=== PATIENT | female | born 1990 | race American Indian/Alaskan Native ===

== ENCOUNTER 2019-05-14 11:10 | Emergency (ER) | payer SELFPAY ==
[2019-05-14 11:22] VITALS: BP 127/91
--- NOTE | 2019-05-14 11:22 | Event Note ---
ED Screening Note Date of service: 05/14/19 Time: 11:20 ED Screening Note: This is a 28 y.o. F. that presents to the ER with left sided facial numbness, cough, congestion, and chest discomfort for 3 days. Taking mucinex. This initial assessment/diagnostic orders/clinical plan/treatment(s) is/are subject to change based on patients health status, clinical progression and re- assessment by fellow clinical providers in the ED. Further treatment and workup at subsequent clinical providers discretion. Patient/guardian urged not to elope from the ED as their condition may be serious if not clinically assessed and managed. Initial orders include:
--- NOTE | 2019-05-14 11:43 | Emergency Department Report ---
Chief Complaint: Upper Respiratory Infection Stated Complaint: CP/FACE NUMB/COUGH/FLU SYM Time Seen by Provider: 05/14/19 11:19 - HPI History of Present Illness: This is a 28-year-old female that presents to the ER with sore throat, cough, congestion, and chest discomfort for 3 days. Patient denies any drooling or hoarseness. Patient denies any other symptoms. Denies any fever, chills, headache, nausea, vomiting, chest pain or SOB. Denies any other complaints. - ROS Review of Systems: ROS: Stated complaint: cough, sore throat, chills, and congestion Other details as noted in HPI Constitutional: chills, fever ENT: throat pain, and congestion. denies: ear pain, Respiratory: cough. denies: shortness of breath, SOB with exertion, wheezing Cardiovascular: denies: palpitations, chest pain Gastrointestinal: denies: abdominal pain, nausea, diarrhea Musculoskeletal: denies: back pain, joint swelling, arthralgia Skin: denies: rash, lesions Neurological: denies: headache, weakness, paresthesias Psychiatric: denies: anxiety, depression - Exam Vital Signs: Vital Signs 05/14/19 11:20 Temperature 98.5 F Pulse Rate 79 Respiratory 16 Rate Blood Pressure 127/91 [Left] O2 Sat by Pulse 100 Oximetry Physical Exam: General: Vital signs noted. No distress. Alert and acting appropriately. HEENT: Yes Moist Mucous Membranes, Yes Rhinorrhea (turbinates mildly congested with clear discharge), Yes Posterior pharynx Erythema (uvula midline), No Pharyngeal Exudates, No Conjuctival Injection, No Frontal Tenderness, No Maxillary Tenderness Ear: Neither TM Bulge, Neither TM Erythema, Neither EAC Pain, Neither EAC Discharge, Neither Cerumen Impaction Neck: Yes Supple, No Adenopathy Lungs: Yes Good Air Exchange, No Wheezes, No Ronchi, No Stridor, No Cough, No Labored Respirations, No Retractions, No Use of Accessory Muscles, No Other Abnormal Lung Sounds Heart: Yes Regular, No Murmur Abdomen: Yes Normal Bowel Sounds, No Tenderness, No Peritoneal Signs Skin: No Rash, No Eczema Neurologic: Alert and oriented, no deficits. MSE screening note: Focused history and physical exam performed. Due to findings the following was ordered: ED Medical Decision Making - Medical Decision Making Patient is stable and examined by me. Vitals are normal. No significant past medical history. No signs of distress noted. This is a non-emergent complaint. On exam the posterior pharynx erythema, mild congestion with clear discharge which is susceptible of URI. However, the patient has normal vital signs, no active vomiting, and lungs are clear. I don't believe this to be influenza or pneumonia. Instructed to take OTC cold and flu medication for symptomatic relief. Referrals to PCP for follow up. Patient informed of ER plan of care and agree with the plan. Instructed to follow-up with primary care doctor in 2- 3 days or return to the emergency room with worsening symptoms. ED Disposition for MSE Clinical Impression: Feared complaint without diagnosis Disposition: - TO HOME OR SELFCARE Is pt being admited?: No Condition: Stable Instructions: Viral Syndrome (ED), Cold Symptoms (ED) Additional Instructions: Take robitussin DM, theraflu, or sudafed for symptomatic relief. Take cepacol for sore throat. Wash hands frequently. Increase fluid intake. Follow-up with your primary care doctor for further evaluation. Return to the emergency room if worsening symptoms. Referrals: [facility] [Outside] - 3-5 Days [facility] [Outside] - 3-5 Days [facility] [Outside] - 3-5 Days Forms: Work/School Release Form(ED) Time of Disposition: 11:44
== END 2019-05-14 12:03 | disposition home or self-care (01) ==
LOC: ED 11:10
DX: R05 Cough (principal); R09.81 Nasal congestion; R07.89 Other chest pain